=== PATIENT | female | born 1975 | race Caucasian/White ===

== ENCOUNTER 2016-09-04 12:49 | Emergency (ER) | payer MEDICAID, OTHER ==
[~2016-09-04] VITALS: Ht 162.6 cm; Wt 67.0 kg
[~2016-09-04 12:49] MED LIST: ALBU6.7H INH
[2016-09-04 12:53] VITALS: BP 120/77; PULSE 78; RESP 16; TEMP 98.1; O2SAT 99
--- NOTE | 2016-09-04 19:16 | PD ---
HPI Chief Complaint: Related Problem Time Seen by Provider: 19:16 Travel History International Travel<30 days: No Contact w/Intl Traveler<30days: No Traveled to known affect area: No History of Present Illness HPI 40-year-old female presents to the emergency department accompanied by Chuck leonard requesting viability test so the patient can be admitted to [facility] for detox. Patient states she is approximately 16-18 weeks . She thinks her last menstrual period was in April. This is her ninth , she has 4 living children, and 4 miscarriages. She does not have an timekeeper supervisor. He took 2 mg of Subutex last 2 days ago. History of IV Dilaudid use 2 weeks ago. Denies alcohol use. Denies tobacco use for 2 weeks. Has no medical complaints at this time. Denies abdominal cramping, vaginal bleeding, vaginal discharge. Denies fever, chills, nausea, vomiting. Denies chest pain, shortness of breath, abdominal pain, change in stool or urine. History of asthma, anxiety, bipolar disorder, depression. No known allergies. Does not have a primary care provider. No other modifying factors or associated signs and symptoms. PFSH Past Medical History Asthma: Yes Anxiety: Yes Genitourinary: No Musculoskeletal: No Neurologic: No Reproductive: No Respiratory: Yes (asthma) ?: LMP: 04/16 Past Surgical History Section: Yes (X1) Gynecologic Surgery: Yes (FALLOPIAN TUBE SURGERY) Social History Alcohol Use: No Tobacco Use: Yes (1 AND 1/2 PPD) Substance Use: Yes (SMOKES MARIJUANA) Allergies-Medications (Allergen,Severity, Reaction): Coded Allergies: No Known Allergies (Verified , 09/04/16) Reported Meds & Prescriptions Reported Meds & Active Scripts Active Reported Buprenorphine (Buprenorphine HCl) 2 Mg Subl 2 Mg SL Proventil Hfa 6.7 GM Inh (Albuterol Sulfate) 90 Mcg/Act Aer 2 Puff INH Q4-6H PRN Review of Systems Except as stated in HPI: all other systems reviewed are Neg Physical Exam Narrative GENERAL: Well-nourished, well-developed female patient, in no acute distress; SKIN: Warm and dry. HEAD: Atraumatic. Normocephalic. EYES: Pupils equal and round. No scleral icterus. No injection or drainage. ENT: Mucosa pink and moist. Airway patent. NECK: Trachea midline. CARDIOVASCULAR: Regular rate and rhythm. No murmur appreciated. . RESPIRATORY: No accessory muscle use. Clear to auscultation. Breath sounds equal bilaterally. GASTROINTESTINAL: Rounded, . Abdomen soft, non-tender, nondistended. Hepatic and splenic margins not palpable. Bowel sounds are active 4 quadrants. MUSCULOSKELETAL: No obvious deformities. No clubbing. No cyanosis. No edema. NEUROLOGICAL: Awake and alert. Oriented 3. No obvious cranial nerve deficits. Motor grossly within normal limits. Normal speech. PSYCHIATRIC: Appropriate mood and affect; insight and judgment normal. Data Data Last Documented VS Vital Signs Date Time Temp Pulse Resp B/P Pulse Ox O2 Delivery O2 Flow Rate FiO2 09/04/16 12:53 98.1 78 16 120/77 99 Room Air Orders Ed Poc Ultrasound (09/04/16 ) [facility] Medical Decision Making Medical Screen Exam Complete: Yes Emergency Medical Condition: Yes Medical Record Reviewed: Yes Differential Diagnosis Medical clearance, narcotic abuse, Narrative Course 40-year-old female presents with a [employer] worker requesting viability test clearance for detox admission. Patient is approximately 16-18 weeks . Thinks her Last menstrual period was in April. Does not have timekeeper supervisor. Denies abdominal cramping, vaginal discharge, vaginal bleeding. Has no medical complaints at this time. Last used 2 mg Subutex 2 days ago and IV Dilaudid 2 weeks ago. Urine positive. 1950: ED bedside ultrasound done by Dr. Kim and unable to verify heart tones or movement; fetus present. I called and talked to Dr. Manriquez, OB/ PROGRAMMER OR ANALYST hospitalist and she recommended the patient be sent up to [facility]. Patient will be transported to the [facility]. Diagnosis Primary Impression: Encounter to determine viability of Qualified Code: O36.80X0 - Encounter to determine viability of , not applicable or unspecified fetus Disposition: DISCHARGE HOME Condition: Stable Adelaida Cameron Sep 04, 2016 19:16 Disposition: DISCHARGE HOME Condition: Stable Adelaida Cameron Sep 04, 2016 19:16
[2016-09-04] MEDS ORDERED: ALBU6.7H INH (19:35)
[2016-09-04] MEDS ORDERED: BUPR2SUB SL (19:38)
--- NOTE | 2016-09-04 20:35 | PD ---
Physical Exam Date Seen by Provider: Sep 04, 2016 Time Seen by Provider: 20:00 Narrative 40-year-old female was seen by the nurse practitioner to be checked for her viability. Patient is an IV drug abuser and uses Dilaudid. She is A4. She thinks she is 16-18 weeks since her last menstrual period was somewhere in April. She has not had any checkups done. No history of bleeding or spotting or contractions. She is going for rehabilitation. Data Data Last Documented VS Vital Signs Date Time Temp Pulse Resp B/P Pulse Ox O2 Delivery O2 Flow Rate FiO2 09/04/16 12:53 98.1 78 16 120/77 99 Room Air Orders Ed Poc Ultrasound (09/04/16 ) Ed Urine Pregnancytest Poc (09/04/16 20:07) MDM Supervised Visit with JIE: Yes Narrative Course 8:15 PM after the ultrasound was done this information was revealed to the patient who obviously was very upset. I asked the nurse practitioner to call the laborist ultrasonic seaming machine operator so that patient can go to labor and delivery. She did speak with Dr. Manriquez who is ultrasonic seaming machine operator and she asked to send the patient up to L& D ER. Procedures Procedure Narrative Emergency Department Pelvic ultrasound was performed with patient consent. The curvilinear probe was used in the transverse and sagittal views within the suprapubic region revealing intrauterine demise. heart rate was 0. Diagnosis Primary Impression: Encounter to determine viability of Qualified Code: O36.80X0 - Encounter to determine viability of , not applicable or unspecified fetus Departure Forms: Tests/Procedures Disposition: DISCHARGE HOME Condition: Stable Serenity Kim MD Sep 04, 2016 20:35
--- NOTE | 2016-09-04 21:22 | PD.CONS ---
History & Physical H&P This patient is a 40-year-old 9 para 4044 unsure of her EDC unsure of how she is brought here from [facility] for medical clearance for admission to the drug program Upon arrival in the emergency room they did a bedside ultrasound which showed no heart tones she was sent up to labor and delivery for confirmation Past medical history she has a history of asthma no known drug allergies Previous surgery left tube and ovary were removed previous 2 OB history vaginal delivery 2 her first baby born at 36 weeks Previous 2 Social history she stopped smoking 2 weeks ago she has a history of drug use and she is on Subutex 2 mg per day Has been hospitalized in the past for a pelvic mass which was removed Family history is noncontributory On physical exam her blood pressures 118/68 pulse is 81 she is afebrile blood type is O+ Her abdomen is soft there is a healed Pfannenstiel incision no rebound tenderness nontender No vaginal bleeding Bedside ultrasound is done crown-rump length is consistent with 12 weeks gestation no heart tones are appreciated Assessment; IUFD at 12 weeks gestation no heart tones History of drug use Plan; we'll [facility] and Dr. Cruz for treatment of IUFD is patient is clinically stable not bleeding she can be managed as an outpatient Serenity Joyner MD Sep 04, 2016 21:22
== END 2016-09-05 02:02 | disposition home or self-care (01) ==
LOC: NEPE 12:49 → HOBED 09-05 02:02
DX: O36.80X0 Pregnancy with inconclusive fetal viability, not applicable or unspecified (principal); O36.4XX0 Maternal care for intrauterine death, not applicable or unspecified; F41.8 Other specified anxiety disorders; F31.9 Bipolar disorder, unspecified; Z3A.00 Weeks of gestation of pregnancy not specified
CPT/HCPCS: 84703; 99283

== ENCOUNTER 2016-09-09 13:03 | Observation (INO) | payer MEDICAID, OTHER ==
[~2016-09-09] VITALS: Ht 162.6 cm; Wt 66.3 kg
[2016-09-09 04:00] VITALS: BP 109/70; PULSE 99; RESP 16; TEMP 98; O2SAT 98
[~2016-09-09 13:03] MED LIST changes: +BUPR2SUB SL
[2016-09-09 13:06] VITALS: BP 152/80; PULSE 116; RESP 12; TEMP 98; O2SAT 100
[2016-09-09 14:25] VITALS: BP 131/72; PULSE 108; RESP 16; TEMP 99.1; O2SAT 100
--- NOTE | 2016-09-09 14:40 | PD ---
HPI Chief Complaint: Medical Clearance Time Seen by Provider: 14:22 Travel History International Travel<30 days: No Contact w/Intl Traveler<30days: No Traveled to known affect area: No History of Present Illness HPI 40-year-old female was brought from [facility] to the ED for medical clearance. Patient was admitted to [facility] for substance abuse. Patient was seen in emergency room 5 days ago with diagnosis of intrauterine demise at 12 weeks gestational age, no heart tone. Patient was seen by ED OB. Patient was medically cleared 4 [facility]. Patient being transferred to a new facility and patient needs medical clearance. Patient has appointment for D&C GENERAL SCRAP WORKER on September 17, 2015. Patient denies any headache. Patient denies any chest pain or shortness of breath. Patient denies abdominal pain. Patient denies any pelvic pain. Patient denies any vaginal discharge or bleeding. Patient is low-grade fever at the facility with temperature up to 100.4 intermittent yesterday and today. Patient denies earache sore throat coughing congestion. Patient denies dysuria or frequency. PFSH Past Medical History Asthma: Yes Bipolar Disorder: Yes Anxiety: Yes Depression: Yes Genitourinary: No Musculoskeletal: No Neurologic: No Reproductive: No Respiratory: Yes (asthma) ?: Not LMP: 04/2016 : 9 Para: 4 Past Surgical History Section: Yes (X2) Gynecologic Surgery: Yes (LEFT FALLOPIAN TUBE AND OVARY REMOVED) Social History Alcohol Use: No (denies) Tobacco Use: Yes (1ppd) Substance Use: Yes (SMOKES MARIJUANA, IV DILAUDID USE) Allergies-Medications (Allergen,Severity, Reaction): Coded Allergies: No Known Allergies (Verified , 09/09/16) Reported Meds & Prescriptions Reported Meds & Active Scripts Active Reported Proventil Hfa 6.7 GM Inh (Albuterol Sulfate) 90 Mcg/Act Aer 2 Puff INH Q4-6H PRN Review of Systems General / Constitutional: Positive: Fever Eyes: No: Visual changes HENT: No: Headaches Cardiovascular: No: Chest Pain or Discomfort Respiratory: No: Shortness of Breath Gastrointestinal: No: Abdominal Pain Genitourinary: No: Dysuria Musculoskeletal: No: Pain Skin: No Rash Neurologic: No: Weakness Psychiatric: No: Depression Endocrine: No: Polydipsia Hematologic/Lymphatic: No: Easy Bruising Physical Exam Narrative GENERAL: Well-nourished, well-developed patient. SKIN: Warm and dry. HEAD: Normocephalic. EYES: No scleral icterus. No injection or drainage. NECK: Supple, trachea midline. No JVD or lymphadenopathy. CARDIOVASCULAR: Regular rate and rhythm without murmurs, gallops, or rubs. RESPIRATORY: Breath sounds equal bilaterally. No accessory muscle use. GASTROINTESTINAL: Abdomen soft, non-tender, nondistended. MUSCULOSKELETAL: No cyanosis, or edema. BACK: Nontender without obvious deformity. No CVA tenderness. Data Data Last Documented VS Vital Signs Date Time Temp Pulse Resp B/P Pulse Ox O2 Delivery O2 Flow Rate FiO2 09/09/16 14:25 99.1 108 16 131/72 100 Room Air MDM Medical Decision Making Medical Screen Exam Complete: Yes Emergency Medical Condition: Yes Differential Diagnosis Differential diagnosis including viral syndrome, otitis media, pharyngitis, bronchitis, pneumonia, UTI Narrative Course 40-year-old female with intrauterine demise at 12 weeks. Jovon Morillo MD Sep 09, 2016 14:40
[2016-09-09 14:49] LABS: AUTOMATED NEUTROPHIL # 5.9 TH/MM3 (1.8-7.7); BASOPHIL # 0.1 TH/MM3 (0-0.2); BASOPHIL % 0.6 % (0.0-2.0); EOSINOPHIL # 0.4 TH/MM3 (0-0.4); EOSINOPHIL % 4.1 % (0.0-4.0); HEMO FLAGS DIFF FINAL; LYMPH % 25.1 % (9.0-44.0); LYMPHOCYTE # 2.3 TH/MM3 (1.0-4.8); MEAN CELL VOLUME 88.8 FL (80.0-100.0); MEAN CORPUSCULAR HGB CONC 33.7 % (32.0-36.0); MONO % 5.1 % (0.0-8.0); NEUT % 65.1 % (16.0-70.0); PLATELET COUNT 270 TH/MM3 (150-450); RED BLOOD COUNT 4.39 MIL/MM3 (4.00-5.30); RED CELL DISTRIBUTION WIDTH 14.3 % (11.6-17.2)
[2016-09-09 15:04] LABS: ALT (GPT) 38 U/L (10-53); ANION GAP 4 MEQ/L (5-15); AST (GOT) 15 U/L (15-37); BICARBONATE 30.6 MEQ/L (21.0-32.0); BLOOD UREA NITROGEN 16 MG/DL (7-18); CHLORIDE 107 MEQ/L (98-107); GLOMERULAR FILTRATION RATE 95 ML/MIN (>89); POTASSIUM 4.1 MEQ/L (3.5-5.1); SODIUM (NA) 142 MEQ/L (136-145)
[2016-09-09 15:06] LABS: ALKALINE PHOSPHATASE 72 U/L (45-117); TOTAL BILIRUBIN ADULT 0.2 MG/DL (0.2-1.0)
[2016-09-09 15:07] LABS: BLOOD, URINE NEG (NEG); GLUCOSE,URINE NEG (NEG); KETONE, URINE NEG (NEG); NITRITE,URINE NEG (NEG); PH, URINE 5.5 (5.0-8.5); SQUAMOUS EPITHELIAL CELL URINE 1 /hpf (0-5); URINE COLOR LIGHT-YELLOW (YELLW/STRAW)
[2016-09-09 15:13] LABS: AMPHETAMINE, URINE NEG (NEG); BARBITURATES, URINE NEG (NEG); COCAINE, URINE NEG (NEG)
[2016-09-09 15:30] LABS: COMMENT (UR) CULT NOT INDICATED; CULTURE IF INDICATED CULT NOT INDICATED
[2016-09-09 18:00] VITALS: BP 152/91; PULSE 108; RESP 18; O2SAT 99
--- NOTE | 2016-09-09 19:13 | HHI.HP ---
HPI Chief Complaint 12 week missed URTI opioid dependence--currently in detox and then diversion to [facility] by drug court from [facility]. Date Seen: Sep 09, 2016 Travel History International Travel<30 Days: No Contact w/Intl Traveler<30Days: No Known Affected Area: No History of Present Illness HPI 40 savanna with 12 week IUP with no heart tones. This was diagnosed as without FHTs by Dr. Manriquez, laborist on September. She has been incarcerated on drug charges and had requested transfer to [place] for detox and then to [facility] for duration of and post period. This had been approved by her surgical processor. Once the missed was diagnosed, she was discharged from [facility] and told to follow up for D & C on an outpatient basis. She was referred to Dr. Cruz, newly hired at [facility], but he does not yet have his privileges. I was called by the states banking attorney involved in her case and agreed to do the procedure tomorrow am. She has had a low grade fever for several days but denies purulent discharge, cramping, myalgia's, bleeding. Her WBCs are not elevated. Para: 4 : 9 Last Menstrual Period: Sep 09, 2016 History Past Medical History Medical History: Denies Significant Hx Obstetric History Obstetric History 4 living children one ectopic Past Surgical History Narrative Surgical section x 2 x 2 removal of tube and ovary Surgical History: No Previous Surgery (nona) Social History Narrative Social History was in the group home and using subutex, presuming viable and asked and was granted transfer to [facility] after detox at [place]. Has used IV dilaudid in the past. Alcohol Use: No Tobacco Use: Yes Substance Abuse: Yes Allergies-Medications (Allergen,Severity, Reaction): Coded Allergies: No Known Allergies (Verified , 09/09/16) Home Meds Reported Medications Albuterol 6.7 GM Inh (Proventil Hfa 6.7 GM Inh)90 Mcg/Act Aer2 Puff INH Q4-6H PRN (SHORTNESS OF BREATH) #1 INHALER Ref 0 09/04/16 Discontinued Reported Medications Buprenorphine 2 Mg Subl2 Mg SL 09/04/16 Albuterol Sulfate (Proventil Hfa)6.7 Gm Aero2 Puff INH Q4HPRN #1 Ref 0 04/04/09 Review of Systems Except as stated in HPI: all other systems reviewed are Neg General / Constitutional: Fever Physical Exam Narrative GENERAL: Well-nourished, well-developed patient. SKIN: Warm and dry. HEAD: Normocephalic and atraumatic. EYES: No scleral icterus. No injection or drainage. ENT: No nasal drainage noted. Mucous membranes pink. Airway patent. NECK: Supple, trachea midline. No JVD. CARDIOVASCULAR: Regular rate and rhythm without murmurs, gallops, or rubs. RESPIRATORY: Breath sounds equal bilaterally. No accessory muscle use. BREASTS: Bilateral exam showed no masses , no retractions, no nipple discharge. ABDOMEN/GI: Abdomen soft, non-tender, bowel sounds present, no rebound, no guarding uterus consistent with late first trimester os closed EXTREMITIES: No cyanosis or edema. BACK: Nontender without obvious deformity. No CVA tenderness. NEUROLOGICAL: Awake and alert. Motor and sensory grossly within normal limits. Five out of 5 muscle strength in all muscle groups. Normal speech. Data Data Orders Complete Blood Count With Diff (09/09/16 14:31) Comprehensive Metabolic Panel (09/09/16 14:31) Urinalysis - C+S If Indicated (09/09/16 14:31) Iv Access Insert/Monitor (09/09/16 14:31) Drug Screen, Random Urine (09/09/16 14:31) Admit Order (Ed Use Only) (09/09/16 17:10) Labs Laboratory Tests Test 09/09/16 14:37 White Blood Count 9.0 Red Blood Count 4.39 Hemoglobin 13.2 Hematocrit 39.0 Mean Corpuscular Volume 88.8 Mean Corpuscular Hemoglobin 30.0 Mean Corpuscular Hemoglobin 33.7 Concent Red Cell Distribution Width 14.3 Platelet Count 270 Mean Platelet Volume 8.3 Neutrophils (%) (Auto) 65.1 Lymphocytes (%) (Auto) 25.1 Monocytes (%) (Auto) 5.1 Eosinophils (%) (Auto) 4.1 Basophils (%) (Auto) 0.6 Neutrophils # (Auto) 5.9 Lymphocytes # (Auto) 2.3 Monocytes # (Auto) 0.5 Eosinophils # (Auto) 0.4 Basophils # (Auto) 0.1 CBC Comment DIFF FINAL Differential Comment Urine Color LIGHT-YELLOW Urine Turbidity CLEAR Urine pH 5.5 Urine Specific [place] 1.008 Urine Protein NEG Urine Glucose (UA) NEG Urine Ketones NEG Urine Occult Blood NEG Urine Nitrite NEG Urine Bilirubin NEG Urine Urobilinogen LESS THAN 2.0 Urine Leukocyte Esterase NEG Urine WBC LESS THAN 1 Urine Squamous Epithelial 1 Cells Microscopic Urinalysis Comment CULT NOT INDICATED Sodium Level 142 Potassium Level 4.1 Chloride Level 107 Carbon Dioxide Level 30.6 Anion Gap 4 Blood Urea Nitrogen 16 Creatinine 0.69 Estimat Glomerular Filtration 95 Rate Random Glucose 73 Calcium Level 9.3 Total Bilirubin 0.2 Aspartate Amino Transf 15 (AST/SGOT) Alanine Aminotransferase 38 (ALT/SGPT) Alkaline Phosphatase 72 Total Protein 6.9 Albumin 3.4 Urine Opiates Screen NEG Urine Barbiturates Screen NEG Urine Amphetamines Screen NEG Urine Benzodiazepines Screen NEG Urine Cocaine Screen NEG Urine Cannabinoids Screen NEG Assessment/Plan Assessment and Plan missed with low grade temp likely not related (URTI) needs to be addressed and patient returned to controlled environment WIll do D & C in am then back to [place]. Iris Masters MD Sep 09, 2016 19:13
[2016-09-09 21:39] VITALS: BP 121/84; PULSE 100; RESP 18; TEMP 99.3; O2SAT 99
[2016-09-09] MEDS ORDERED: ACETAMINOPHEN 325 MG TAB PO PRN (22:00)
[2016-09-09] MEDS: LACTATED RINGER'S 1000 ML INJ 1,000 ML IV SCH (22:53)
[2016-09-10] VITALS: BP 127/77; PULSE 109; RESP 18; TEMP 99.6; O2SAT 98
[2016-09-10 04:00] VITALS: BP 109/70; PULSE 99; RESP 16; TEMP 98.3; O2SAT 98
[2016-09-10] MEDS: LACTATED RINGER'S 1000 ML INJ 1,000 ML IV SCH (05:35)
--- NOTE | 2016-09-10 06:51 | PD.OP ---
Operative Report Date of Surgery: Sep 10, 2016 Preoperative Diagnosis: 12 week missed Postoperative Diagnosis: 12 week missed Procedure: Dilitation and currettage Anesthesia: GET Surgeon: Iris Masters [place] Manager(s): staff Operation and Findings: dictated + Iris Masters MD Sep 10, 2016 06:51
[2016-09-10] MEDS ORDERED: OXYTOCIN 10 UNIT/ML AMP ONE (07:05)
[2016-09-10] MEDS ORDERED: OXYTOCIN 10 UNIT/ML AMP IV ONE (07:07)
[2016-09-10] MEDS ORDERED: ceFAZolin INJ 1,000 MG VIAL IV ONE (07:10)
[2016-09-10] MEDS ORDERED: METHYLERGONOVINE MALEATE 0.2 MG/ML VIAL IV ONE (07:14)
[2016-09-10] MEDS ORDERED: ACETAMINOPHEN 1000 MG/100 ML VIAL IV ONE (07:26)
[2016-09-10] MEDS ORDERED: ONDANSETRON HCL 4 MG/2 ML VIAL ONE (07:26)
[2016-09-10] MEDS ORDERED: DO NOT ADM ANY ANTICOAGULANT DRUGS XX PRN (07:30)
[2016-09-10] MEDS ORDERED: MIDAZOLAM HCL 2 MG/2 ML VIAL ONE (07:37)
[2016-09-10] MEDS ORDERED: *MEPERIDINE 25 MG INJ VIAL PERIprocedural Use ONLY ONE (07:38)
[2016-09-10] MEDS ORDERED: *morphine SULFATE 8 MG/ML PERIprocedure ONLY ONE ×3 (07:39→08:22)
[2016-09-10] MEDS ORDERED: MORPHINE SULFATE 8 MG/ML INJ IV PUSH ONE ×3 (07:42→08:20)
[2016-09-10] MEDS ORDERED: MEPERIDINE HCL 25 MG/ML VIAL IV ONE (07:44)
[2016-09-10] MEDS ORDERED: LACTATED RINGER'S 1,000 ML BAG XX ONE (08:00)
[2016-09-10] MEDS ORDERED: IBUPROFEN 600 MG TAB PO PRN (08:45)
[2016-09-10 12:00] VITALS: BP 122/75; PULSE 107; RESP 16; TEMP 97.9; O2SAT 100
[2016-09-10] MEDS ORDERED: PROPOFOL 200 MG/20 ML AMP IV ONE (12:00)
--- NOTE | 2016-09-10 12:20 | HHI.DCPOC ---
Discharge Care Plan Report Symptoms to Your Doctor -Temperate above 100.5 degrees -Redness, of incision or excessive or foul smelling drainage -Unusual pain or calf pain -Increased vaginal bleeding -Painful or difficulty urinating -Feelings of extreme sadness or anxiety after 2 weeks Goals to Promote Your Health * To prevent worsening of your condition and complications * To maintain your health at the optimal level Directions to Meet Your Goals Take your medications as prescribed Follow your dietary instruction Follow activity as directed Ensure plenty of rest for recovery Drink fluids for hydration Keep your appointments as scheduled Take your immunizations and boosters as scheduled If your symptoms worsen call your PCP, if no PCP go to Urgent Care Center or Emergency Room Smoking is Dangerous to Your Health. Avoid second hand smoke Call the 24-hour crisis hotline for domestic abuse at Iris Masters MD Sep 10, 2016 12:20
--- NOTE | 2016-09-10 12:49 | MP ---
cc: EDWARD MACK DATE OF SURGERY September 10, 2016. PREOPERATIVE DIAGNOSIS Missed AB at 12 weeks estimated gestational age. POSTOPERATIVE DIAGNOSIS Missed AB at 12 weeks estimated gestational age. SECONDARY DIAGNOSIS Opioid dependence. PROCEDURE Dilatation and sharp and suction curettage. ANESTHESIA General. SURGEON MD Guerrero FINDINGS Examination under anesthesia is consistent with a 12-week retroverted uterus. The cervix was easily dilated to allow the placement of a size 10 curved suction curette. Copious amounts of tissue were obtained both on and sharp and suction curettage. She had significant bleeding during the procedure for about 1000 cc. With rigorous bimanual massage and Pitocin and IM Methergine the bleeding did resolve. There was no laceration of the cervix. No iatrogenic events. She tolerated the procedure well and went to the recovery room in stable condition. PROCEDURE The patient was identified as Mendy Estrada. She was permitted in the hallway reviewing the risks of D&C to be perforation, scarring, infection, bleeding. She also knew that the risks of not doing it was infection, bleeding, scarring. She had signed consents. She was Rh positive. She was taken to the OR, placed under general endotracheal anesthesia in the dorsal lithotomy position. She was given 1 gram of Ancef. Her bladder was emptied. She was prepped and draped in the usual sterile fashion. A time-out was performed and then examination under anesthesia was performed and the speculum was placed. The cervix was grasped with a tenaculum. She was gently sounded to about 14 cm. The cervix was gently dilated to allow the passage of the size 10 suction curette and then suction curettage was performed to obtain a copious amount of tissue. Placental forceps and a banjo curette were also used to assure that the majority of the uterine contents was evacuated appropriately. Subsequent to sharp and suction curettage, the instrumentation was removed and rigors bimanual massage was performed over the course of several minutes. When this was discontinued the bleeding was negligible. She was placed in dorsal supine position, awoken and taken to the recovery room in stable condition. Edward Mack MD PPC/SSB /12:17 PM 12:42 PM
[2016-09-10] MEDS ORDERED: ACETAMINOPHEN 1000 MG/100 ML VIAL IV PRN (13:30)
== END 2016-09-10 14:39 | disposition short-term general hospital (02) ==
LOC: NEPE 13:03 → INTOOBSV 17:12 → NEDA 17:12 → HOCA 22:54 → UNDODISIN 09-10 14:39 → HOCA 09-17 12:49 → HOCB 09-17 12:49
PROVIDERS: ADMIT Obstetrics & Gynecology; ATTEND Obstetrics & Gynecology
DX: O02.1 Missed abortion (principal); R50.9 Fever, unspecified; N85.4 Malposition of uterus; J45.909 Unspecified asthma, uncomplicated; Z67.90 Unspecified blood type, Rh positive; O99.341 Other mental disorders complicating pregnancy, first trimester; F31.9 Bipolar disorder, unspecified; O99.321 Drug use complicating pregnancy, first trimester; F11.90 Opioid use, unspecified, uncomplicated; F12.90 Cannabis use, unspecified, uncomplicated; Z72.0 Tobacco use
CPT/HCPCS: 01965; 59820; 80053; 80307; 81001; 85025; 88305; 99284; G0378; J0131; J0690; J2175; J2210; J2250; J2270; J2405; J2590; J3010; J7120